=== PATIENT | male | born 1980 | race Caucasian/White ===

== ENCOUNTER 2019-11-11 10:21 | Emergency (ER) | payer BC ==
--- NOTE | 2019-11-11 10:29 | EDM.PDOC ---
ED HPI GENERAL MEDICAL PROBLEM - General Chief Complaint: Back Pain or Injury Stated Complaint: BACK PAIN Time Seen by Provider: 11/11/19 10:28 Source of Information: Reports: Patient - History of Present Illness INITIAL COMMENTS - FREE TEXT/NARRATIVE: HISTORY AND PHYSICAL: History of present illness: [pt presents with one month cough and acute 8/10 pain over right rib associated wth cough episode no f/n/v/c/s/sob ] Review of systems: As per history of present illness and below otherwise all systems reviewed and negative. Past medical history: As per history of present illness and as reviewed below otherwise noncontributory. Surgical history: As per history of present illness and as reviewed below otherwise noncontributory. Social history: No reported history of drug or alcohol abuse. Family history: As per history of present illness and as reviewed below otherwise noncontributory. Physical exam: HEENT: Atraumatic, normocephalic, pupils reactive, negative for conjunctival pallor or scleral icterus, mucous membranes moist, throat clear, neck supple, nontender, trachea midline. Lungs: Clear to auscultation, breath sounds equal bilaterally, chest nontender on left tender along right lower rib margins Heart: S1S2, regular, negative for clicks, rubs, or JVD. Abdomen: Soft, nondistended, nontender. Negative for masses or hepatosplenomegaly. Negative for costovertebral tenderness. Pelvis: Stable nontender. Genitourinary: Deferred. Rectal: Deferred. Extremities: Atraumatic, negative for cords or calf pain. Neurovascular unremarkable. Neuro: Awake, alert, oriented. Cranial nerves II through XII unremarkable. Cerebellum unremarkable. Motor and sensory unremarkable throughout. Exam nonfocal. Diagnostics: [2v rib w chest ] Therapeutics: [zpak 500 #6 no rf ]robatussin ac ] hfa Impression: [persistant cough right rib pain Definitive disposition and diagnosis as appropriate pending reevaluation and review of above. Right Thoracic Pain Score (Numeric/FACES): 5 - Related Data Allergies Allergy/AdvReac Type Severity Reaction Status Date / Time Penicillins Allergy Rash Verified 11/11/19 10:28 Sulfa (Sulfonamide Allergy Rash Verified 11/11/19 10:28 Antibiotics) Home Meds: Home Meds Meloxicam 15 mg PO ASDIRECTED 12/15/19 [History] ED ROS GENERAL - Review of Systems Review Of Systems: See Below ED EXAM, GENERAL - Physical Exam Exam: See Below Course - Vital Signs Last Recorded V/S: Last Vital Signs Temp 97.5 F 11/11/19 10:29 Pulse 67 11/11/19 10:29 Resp 16 11/11/19 10:29 BP 130/81 11/11/19 10:29 Pulse Ox 97 11/11/19 10:29 Departure - Departure Time of Disposition: 11:21 Disposition: Home, Self-Care 01 Condition: Good Clinical Impression: Persistent cough for 3 weeks or longer, Rib pain on right side - Discharge Information Referrals: PCP,None [Primary Care Provider] - Forms: ED Department Discharge Additional Instructions: The following information is given to patients seen in the emergency department who are being discharged to home. This information is to outline your options for follow-up care. We provide all patients seen in our emergency department with a follow-up referral. The need for follow-up, as well as the timing and circumstances, are variable depending upon the specifics of your emergency department visit. If you don't have a primary care physician on staff, we will provide you with a referral. We always advise you to contact your personal physician following an emergency department visit to inform them of the circumstance of the visit and for follow-up with them and/or the need for any referrals to a consulting specialist. The emergency department will also refer you to a specialist when appropriate. This referral assures that you have the opportunity for follow-up care with a specialist. All of these measure are taken in an effort to provide you with optimal care, which includes your follow-up. Under all circumstances we always encourage you to contact your private physician who remains a resource for coordinating your care. When calling for follow-up care, please make the office aware that this follow-up is from your recent emergency room visit. If for any reason you are refused follow-up, please contact the [facility] emergency department at and asked to speak to the emergency department charge nurse. Sepsis Event Note - Focused Exam Vital Signs: Vital Signs Temp Pulse Resp BP Pulse Ox 11/11/19 10:29 97.5 F 67 16 130/81 97 Date Exam was Performed: 11/11/19 Time Exam was Performed: 11:21
--- NOTE | 2019-11-11 11:08 | CR ---
INDICATION: Right-sided chest pain. TECHNIQUE: Chest 1 view and right rib series. COMPARISON: None FINDINGS: Chest: The heart size and central vascular pattern are within the normal range. The lungs are clear of acute appearing infiltrates. No pleural effusion, pneumothorax or rib fracture is seen. Right rib series: No rib fracture or acute abnormality is seen. IMPRESSION: Unremarkable chest. Dictated by David eCe MD @ Nov 11 2019 11:02AM Signed by Dr. David Cee @ Nov 11 2019 11:07AM
== END 2019-11-11 11:31 | disposition home or self-care (01) ==
LOC: MW.ED 10:21
DX: R05 Cough (principal); R07.81 Pleurodynia; Z88.0 Allergy status to penicillin; Z88.2 Allergy status to sulfonamides
CPT/HCPCS: 71101-26-RT; 71101-RT; 99283; 99283-25